=== PATIENT | female | born 1995 | race Caucasian/White ===

== ENCOUNTER 2024-02-06 13:01 | Emergency (ER) | payer OTHER ==
[2024-02-06 13:09] VITALS: RESP 18; BMI 20.7
[2024-02-06] MEDS ORDERED: PENICILLIN G BENZATHINE 1,200,000 UNIT/2 ML PFS IM ONE (14:04)
[2024-02-06] MEDS ORDERED: DEXAMETHASONE SOD PHOSPHATE 10 MG/1 ML VIAL ONE (14:04)
[2024-02-06] MEDS: PENICILLIN G BENZATHINE 1,200,000 UNIT/2 ML PFS IM ONE (14:10)
[2024-02-06] MEDS: DEXAMETHASONE SOD PHOSPHATE 10 MG/1 ML VIAL PO ONE (14:11)
[2024-02-06] MEDS: LACTATED RINGERS SOLUTION 1,000 ML/1,000 ML INFUS.BAG IV SCH (14:15)
[2024-02-06 14:17] LABS: BASO % 0.4 % (0-2.0); EOS % 0.2 % (0-4.5); HEMATOCRIT 38.3 % (32.4-45.2); HEMOGLOBIN 13.1 GM/dL (10.7-15.3); LYMPH % 12.3 % (8-40); MCH 29.8 pg (25.7-33.7); MCHC 34.1 g/dl (32.0-36.0); MEAN CELL VOLUME 87.3 fl (80-96); MEAN PLT VOLUME 7.2 fl (7.5-11.1); NEUT % 81.1 % (42.8-82.8); PLATELET COUNT 391 10^3/uL (134-434); RBC 4.39 M/mm3 (3.60-5.2); RDW 13.5 % (11.6-15.6); WHITE BLOOD COUNT 18.8 K/mm3 (4.0-10.0)
[2024-02-06] MEDS ORDERED: KETOROLAC TROMETHAMINE 15 MG/ML VIAL ONE (14:32)
[2024-02-06 14:34] LABS: POTASSIUM 4.1 mmol/L (3.5-5.1)
[2024-02-06] MEDS: KETOROLAC TROMETHAMINE 15 MG/ML VIAL IVPUSH ONE (14:35)
[2024-02-06 14:36] LABS: CALCIUM 9.3 mg/dL (8.5-10.1)
[2024-02-06 14:37] LABS: ALBUMIN 3.8 g/dl (3.4-5.0)
[2024-02-06 14:39] LABS: CREATININE 0.6 mg/dL (0.55-1.3)
[2024-02-06 14:41] LABS: BILIRUBIN,TOTAL 0.6 mg/dL (0.2-1); TOT PROT 7.3 g/dl (6.4-8.2)
[2024-02-06 15:46] VITALS: BP 115/73; PULSE 84; TEMP 98.5
== END 2024-02-06 16:01 | disposition home or self-care (01) ==
LOC: JERFT 13:01
PROC: 3E0333Z Introduction of Anti-inflammatory into Peripheral Vein, Percutaneous Approach (ICD-10-PCS; principal; 2024-02-06)
PROC: 3E02329 Introduction of Other Anti-infective into Muscle, Percutaneous Approach (ICD-10-PCS; 2024-02-06)
DX: J02.0 Streptococcal pharyngitis (principal)
CPT/HCPCS: 36415; 70491-TC; 80053; 84703; 85025; 99285-25; J1100